=== PATIENT | female | born 1980 | race Caucasian/White ===

== ENCOUNTER 2017-06-11 12:14 | Emergency (ER) | payer MEDICAID, OTHER ==
[~2017-06-11] VITALS: Ht 165.1 cm; Wt 61.4 kg
[~2017-06-11 12:14] MED LIST: [UNRECOGNIZED DRUG - CODE]
[2017-06-11] MEDS ORDERED: CARB200T6 PO (12:17)
[2017-06-11] MEDS ORDERED: CarBAMazepine 200 MG ER TABLET PO ONE (12:45)
[2017-06-11 13:02] LABS: BASOPHILS % (AUTO) 0.5 % (0.0-2.0); EOSINOPHILS % (AUTO) 0.4 % (1.0-6.0); HEMATOCRIT 32.9 % (36-46); HEMOGLOBIN 10.6 g/dL (12.0-16.0); LYMPHOCYTES # (AUTO) 2.7 K/uL (1.0-4.8); LYMPHOCYTES % (AUTO) 27.9 % (22.0-44.0); MEAN CORPUSCULAR HEMOGLOBIN 24.9 pg (26.0-34.0); MEAN CORPUSCULAR HGB CONC 32.3 G/dL (31.0-37.0); MEAN CORPUSCULAR VOLUME 77 fL (80-100); MONOCYTES # (AUTO) 0.5 K/uL (0.1-1.0); MONOCYTES % (AUTO) 5.3 % (2.0-9.0); NEUTROPHILS # (AUTO) 6.4 K/uL (1.8-7.7); NEUTROPHILS % (AUTO) 65.9 % (40.0-70.0); PLATELET COUNT (AUTO) 286 K/uL (150-450); RED BLOOD CELL COUNT(AUTO) 4.26 MIL/uL (4.00-5.20); RED CELL DISTRIBUTION WIDTH 17.3 % (11.5-14.5); WHITE BLOOD COUNT (AUTO) 9.7 K/uL (4.5-11.0)
[2017-06-11 13:25] LABS: ANION GAP 7 mmol/L (8-16); CALCIUM, TOTAL 8.5 mg/dL (8.8-10.5); CARBON DIOXIDE 25 mmol/L (22-29); CHLORIDE 106 mmol/L (98-107); CREATININE 0.65 mg/dL (0.60-1.30); GLOMERULAR FILTR. RATE CALC > 60 mL/min (>60); POTASSIUM 3.7 mmol/L (3.5-5.1); SODIUM SERUM 138 mmol/L (136-145); UREA NITROGEN, BLOOD 12 mg/dL (7-18)
[2017-06-11 13:32] LABS: ALANINE AMINOTRANSFERASE 22 U/L (12-78); ALBUMIN 3.4 g/dL (3.4-5.0); ASPARTATE AMINOTRANSFERASE 14 U/L (15-37); BILIRUBIN,TOTAL 0.3 mg/dL (0.1-1.0); TOTAL PROTEIN, SERUM 6.5 g/dL (6.4-8.2)
[2017-06-11 14:40] VITALS: BP 113/83
== END 2017-06-11 14:41 | disposition home or self-care (01) ==
LOC: EMS 12:16
DX: G40.909 Epilepsy, unspecified, not intractable, without status epilepticus (principal); G83.84 Todd's paralysis (postepileptic); J45.909 Unspecified asthma, uncomplicated; R29.810 Facial weakness; Z91.19 Patient's noncompliance with other medical treatment and regimen
CPT/HCPCS: 70450; 81025; 99285

== ENCOUNTER 2018-07-15 14:37 | Emergency (ER) | payer MEDICAID ==
[~2018-07-15] VITALS: Ht 157.5 cm; Wt 61.4 kg
[~2018-07-15 14:37] MED LIST changes: +CARB200T6 PO; -[UNRECOGNIZED DRUG - CODE]
[2018-07-15 17:12] VITALS: BP 121/64
[2018-07-15] MEDS ORDERED: KETOROLAC TROMETHAMINE 60 MG/2 ML VIAL IM ONE (18:15)
== END 2018-07-15 18:26 | disposition home or self-care (01) ==
LOC: EMS 14:42
DX: G56.03 Carpal tunnel syndrome, bilateral upper limbs (principal); J45.909 Unspecified asthma, uncomplicated; Z88.8 Allergy status to other drugs, medicaments and biological substances
CPT/HCPCS: 29125; 96372; 99283; J1885

== ENCOUNTER 2018-09-09 10:10 | Emergency (ER) | payer MEDICAID ==
[~2018-09-09] VITALS: Ht 157.5 cm; Wt 59.5 kg
[2018-09-09] MEDS ORDERED: HYDROCODONE/ACETAMINOPHEN 5-325 MG TABLET PO ONE (12:15)
[2018-09-09 12:20] VITALS: BP 105/56
== END 2018-09-09 12:59 | disposition home or self-care (01) ==
LOC: EMS 10:10
DX: K02.9 Dental caries, unspecified (principal); K04.01 Reversible pulpitis; J45.909 Unspecified asthma, uncomplicated; Z88.8 Allergy status to other drugs, medicaments and biological substances

== ENCOUNTER → 2019-05-28 | Outpatient (CLI) | payer OTHER | END | disposition home or self-care (01) | LOC: MSR 09:45 | PROVIDERS: ATTEND Internal Medicine | DX: Z02.1 Encounter for pre-employment examination (principal); R76.11 Nonspecific reaction to tuberculin skin test without active tuberculosis | CPT/HCPCS: 86706; 86735; 86762; 86765; 86787 ==

== ENCOUNTER 2019-07-13 10:31 | Emergency (ER) | payer MEDICAID ==
[~2019-07-13] VITALS: Ht 157.5 cm; Wt 65.5 kg
[2019-07-13] MEDS ORDERED: ALBUTEROL SULFATE 2.5 MG/0.5 ML NEB SOLUTION NEB ONE (11:15)
[2019-07-13] MEDS ORDERED: IPRATROPIUM BROMIDE 0.5 MG/2.5 ML NEB SOLUTION NEB ONE (11:15)
[2019-07-13 11:24] LABS: GLUCOSE,POINT OF CARE 66 MG/DL (70-110)
[2019-07-13] MEDS ORDERED: 0.9% SODIUM CHLORIDE 5 ML NEB SOLUTION NEB ONE (11:26)
[2019-07-13 11:43] LABS: BASOPHILS % (AUTO) 0.7 % (0.0-2.0); EOSINOPHILS % (AUTO) 1.8 % (1.0-6.0); HEMATOCRIT 33.9 % (36-46); HEMOGLOBIN 10.8 g/dL (12.0-16.0); LYMPHOCYTES # (AUTO) 2.7 K/uL (1.0-4.8); LYMPHOCYTES % (AUTO) 29.4 % (22.0-44.0); MEAN CORPUSCULAR HEMOGLOBIN 23.2 pg (26.0-34.0); MEAN CORPUSCULAR HGB CONC 31.8 G/dL (31.0-37.0); MEAN CORPUSCULAR VOLUME 73 fL (80-100); MONOCYTES # (AUTO) 0.7 K/uL (0.1-1.0); MONOCYTES % (AUTO) 7.2 % (2.0-9.0); NEUTROPHILS # (AUTO) 5.7 K/uL (1.8-7.7); NEUTROPHILS % (AUTO) 60.9 % (40.0-70.0); PLATELET COUNT (AUTO) 287 K/uL (150-450); RED BLOOD CELL COUNT(AUTO) 4.65 MIL/uL (4.00-5.20); RED CELL DISTRIBUTION WIDTH 17.2 % (11.5-14.5)
[2019-07-13 11:54] LABS: ANION GAP 6 mmol/L (8-16); CALCIUM, TOTAL 8.5 mg/dL (8.8-10.5); CARBON DIOXIDE 26 mmol/L (22-29); CHLORIDE 105 mmol/L (98-107); CREATININE 0.58 mg/dL (0.60-1.30); GLOMERULAR FILTR. RATE CALC > 60 mL/min (>60); GLUCOSE,RANDOM 82 mg/dL (70-110); POTASSIUM 4.6 mmol/L (3.5-5.1); SODIUM SERUM 137 mmol/L (136-145); UREA NITROGEN, BLOOD 13 mg/dL (7-18)
[2019-07-13 11:58] LABS: B-TYPE NATRIURETIC PEPTIDE 6 pg/mL (0-100)
[2019-07-13 12:06] LABS: ALANINE AMINOTRANSFERASE 20 U/L (12-78); ALBUMIN 3.2 g/dL (3.4-5.0); ALKALINE PHOSPHATASE 81 U/L (46-116); ASPARTATE AMINOTRANSFERASE 13 U/L (15-37); BILIRUBIN,TOTAL 0.3 mg/dL (0.1-1.0); HCG,QUANTITATIVE < 1 mIU/mL (0-6); TOTAL PROTEIN, SERUM 6.6 g/dL (6.4-8.2)
[2019-07-13 12:25] VITALS: BP 110/68
== END 2019-07-13 12:35 | disposition home or self-care (01) ==
LOC: EMS 10:33
DX: J98.01 Acute bronchospasm (principal); Z88.8 Allergy status to other drugs, medicaments and biological substances
CPT/HCPCS: 84443; 93005; 94640

== ENCOUNTER 2019-09-11 08:18 | Emergency (ER) | payer MEDICAID ==
[~2019-09-11] VITALS: Ht 158.8 cm; Wt 64.5 kg
[2019-09-11] MEDS ORDERED: IBUPROFEN 600 MG TABLET PO ONE (09:00)
[2019-09-11 09:56] VITALS: BP 113/70
== END 2019-09-11 10:01 | disposition home or self-care (01) ==
LOC: EMS 08:20
DX: G56.03 Carpal tunnel syndrome, bilateral upper limbs (principal); J45.909 Unspecified asthma, uncomplicated; Z88.8 Allergy status to other drugs, medicaments and biological substances

== ENCOUNTER 2019-10-08 09:45 | Emergency (ER) | payer MEDICAID ==
[~2019-10-08] VITALS: Ht 165.1 cm; Wt 63.6 kg
[2019-10-08 14:39] VITALS: BP 106/69
== END 2019-10-08 14:41 | disposition home or self-care (01) ==
LOC: EMS 09:47
DX: J06.9 Acute upper respiratory infection, unspecified (principal); J45.909 Unspecified asthma, uncomplicated; Z88.8 Allergy status to other drugs, medicaments and biological substances

== ENCOUNTER 2019-10-18 11:21 | Emergency (ER) | payer MEDICAID ==
[~2019-10-18] VITALS: Ht 157.5 cm; Wt 65.0 kg
[2019-10-18] MEDS ORDERED: CARB100 PO (11:23)
[2019-10-18 12:44] LABS: EOSINOPHILS % (AUTO) 2.1 % (1.0-6.0); HEMATOCRIT 35.4 % (36-46); HEMOGLOBIN 10.9 g/dL (12.0-16.0); LYMPHOCYTES # (AUTO) 2.3 K/uL (1.0-4.8); LYMPHOCYTES % (AUTO) 30.2 % (22.0-44.0); MEAN CORPUSCULAR HEMOGLOBIN 21.9 pg (26.0-34.0); MEAN CORPUSCULAR HGB CONC 30.8 G/dL (31.0-37.0); MEAN CORPUSCULAR VOLUME 71 fL (80-100); MONOCYTES # (AUTO) 0.6 K/uL (0.1-1.0); MONOCYTES % (AUTO) 8.1 % (2.0-9.0); NEUTROPHILS # (AUTO) 4.5 K/uL (1.8-7.7); NEUTROPHILS % (AUTO) 58.6 % (40.0-70.0); PLATELET COUNT (AUTO) 338 K/uL (150-450); RED BLOOD CELL COUNT(AUTO) 4.95 MIL/uL (4.00-5.20); RED CELL DISTRIBUTION WIDTH 17.7 % (11.5-14.5)
[2019-10-18 13:03] LABS: ANION GAP 7 mmol/L (8-16); CALCIUM, TOTAL 8.8 mg/dL (8.8-10.5); CARBON DIOXIDE 28 mmol/L (22-29); CHLORIDE 105 mmol/L (98-107); CREATININE 0.77 mg/dL (0.60-1.30); GLOMERULAR FILTR. RATE CALC > 60 mL/min (>60); GLUCOSE,RANDOM 95 mg/dL (70-110); POTASSIUM 3.8 mmol/L (3.5-5.1); SODIUM SERUM 140 mmol/L (136-145); UREA NITROGEN, BLOOD 20 mg/dL (7-18)
[2019-10-18 13:10] LABS: ALANINE AMINOTRANSFERASE 39 U/L (12-78); ALBUMIN 3.7 g/dL (3.4-5.0); ALKALINE PHOSPHATASE 85 U/L (46-116); ASPARTATE AMINOTRANSFERASE 24 U/L (15-37); BILIRUBIN,TOTAL 0.6 mg/dL (0.1-1.0); TOTAL PROTEIN, SERUM 7.3 g/dL (6.4-8.2)
[2019-10-18] MEDS ORDERED: CarBAMazepine 200 MG TABLET PO ONE (13:30)
[2019-10-18 14:34] VITALS: BP 110/76
== END 2019-10-18 15:02 | disposition home or self-care (01) ==
LOC: EMS 11:22
DX: R56.9 Unspecified convulsions (principal); F41.9 Anxiety disorder, unspecified; J45.909 Unspecified asthma, uncomplicated; Z88.8 Allergy status to other drugs, medicaments and biological substances

== ENCOUNTER 2020-02-10 01:22 | Emergency (ER) | payer MEDICAID ==
[~2020-02-10] VITALS: Ht 157.5 cm; Wt 63.6 kg
[~2020-02-10 01:22] MED LIST changes: +CARB100 PO; -CARB200T6 PO
[2020-02-10] MEDS ORDERED: SODIUM CHLORIDE 0.9% 1,000 ML IV ONE (01:45)
[2020-02-10 02:13] LABS: BASOPHILS % (AUTO) 0.8 % (0.0-2.0); EOSINOPHILS % (AUTO) 0.9 % (1.0-6.0); HEMATOCRIT 28.4 % (36-46); LYMPHOCYTES # (AUTO) 2.4 K/uL (1.0-4.8); LYMPHOCYTES % (AUTO) 30.8 % (22.0-44.0); MEAN CORPUSCULAR HEMOGLOBIN 21.5 pg (26.0-34.0); MEAN CORPUSCULAR HGB CONC 31.8 G/dL (31.0-37.0); MEAN CORPUSCULAR VOLUME 68 fL (80-100); MONOCYTES # (AUTO) 0.4 K/uL (0.1-1.0); MONOCYTES % (AUTO) 5.3 % (2.0-9.0); NEUTROPHILS # (AUTO) 4.8 K/uL (1.8-7.7); NEUTROPHILS % (AUTO) 62.2 % (40.0-70.0); PLATELET COUNT (AUTO) 290 K/uL (150-450); RED BLOOD CELL COUNT(AUTO) 4.19 MIL/uL (4.00-5.20); RED CELL DISTRIBUTION WIDTH 17.3 % (11.5-14.5)
[2020-02-10 02:23] LABS: ANION GAP 13 mmol/L (8-16); CALCIUM, TOTAL 7.6 mg/dL (8.8-10.5); CARBON DIOXIDE 22 mmol/L (22-29); CHLORIDE 107 mmol/L (98-107); CREATININE 0.64 mg/dL (0.60-1.30); GLOMERULAR FILTR. RATE CALC > 60 mL/min (>60); GLUCOSE,RANDOM 86 mg/dL (70-110); POTASSIUM 3.1 mmol/L (3.5-5.1); SODIUM SERUM 142 mmol/L (136-145); UREA NITROGEN, BLOOD 11 mg/dL (7-18)
[2020-02-10 02:34] LABS: ALANINE AMINOTRANSFERASE 24 U/L (12-78); ALBUMIN 3.1 g/dL (3.4-5.0); ALKALINE PHOSPHATASE 68 U/L (46-116); ASPARTATE AMINOTRANSFERASE 19 U/L (15-37); BILIRUBIN,TOTAL 0.4 mg/dL (0.1-1.0); CREATINE KINASE, TOTAL ONLY 114 U/L (26-192); TOTAL PROTEIN, SERUM 6.6 g/dL (6.4-8.2)
[2020-02-10 04:49] LABS: HCG,QUANTITATIVE < 1 mIU/mL (0-6)
[2020-02-10] MEDS ORDERED: POTASSIUM CHLORIDE 20 MEQ ER TABLET PO PRN (05:15)
[2020-02-10] MEDS ORDERED: CALCIUM GLUCONATE 1,000 MG in DEXTROSE 5%-WATER 50 ML IV ONE (05:15)
[2020-02-10] MEDS ORDERED: POTASSIUM CHL 10 MEQ/WATER 50 ML IV PRN (05:15)
[2020-02-10] MEDS ORDERED: LevETIRAcetam 1,000 MG in DEXTROSE 5%-WATER 100 ML IV ONE (06:30)
[2020-02-10] MEDS ORDERED: POTASSIUM CHLORIDE 10% 40 MEQ/30 ML LIQUID UDCUP PO ONE (08:00)
[2020-02-10] MEDS ORDERED: CarBAMazepine 200 MG ER TABLET PO ONE (08:00)
[2020-02-10 10:00] VITALS: BP 97/69
== END 2020-02-10 11:01 | disposition home or self-care (01) ==
LOC: EMS 01:22
DX: G40.909 Epilepsy, unspecified, not intractable, without status epilepticus (principal); F10.129 Alcohol abuse with intoxication, unspecified; E87.6 Hypokalemia; E83.51 Hypocalcemia; J45.909 Unspecified asthma, uncomplicated; Z88.8 Allergy status to other drugs, medicaments and biological substances; Y90.6 Blood alcohol level of 120-199 mg/100 ml
CPT/HCPCS: 36415; 70450; 72125; 80053; 82550; 83605; 83735; 84702; 85025; 93005; 96365; 96367; 96375; 99291; G0480; J0610; J0712; J7030; J7060 ×2; J3480

== ENCOUNTER 2021-02-04 17:07 | Emergency (ER) | payer MEDICAID ==
[~2021-02-04] VITALS: Ht 157.5 cm; Wt 66.8 kg
[2021-02-04] MEDS ORDERED: CYCLOBENZAPRINE HCL 10 MG TABLET PO ONE (19:00)
[2021-02-04] MEDS ORDERED: KETOROLAC TROMETHAMINE 30 MG/ML VIAL IM ONE (19:00)
[2021-02-04] MEDS ORDERED: LIDOCAINE 5% TRANSDERMAL PATCH TD ONE (19:00)
[2021-02-04 20:30] VITALS: BP 105/61
== END 2021-02-04 20:30 | disposition home or self-care (01) ==
LOC: EMS 17:09
DX: M54.5 Low back pain (principal); J45.909 Unspecified asthma, uncomplicated; Z88.8 Allergy status to other drugs, medicaments and biological substances
CPT/HCPCS: 96372; 99283; J1885

== ENCOUNTER 2022-09-01 13:05 | Emergency (ER) | payer MEDICAID ==
[~2022-09-01] VITALS: Ht 157.5 cm; Wt 65.9 kg
[2022-09-01] MEDS ORDERED: LevETIRAcetam 1,000 MG in DEXTROSE 5%-WATER 100 ML IV ONE (13:15)
[2022-09-01 13:42] LABS: EOSINOPHILS % (AUTO) 1.8 % (1.0-6.0); HEMATOCRIT 29.1 % (36-46); HEMOGLOBIN 8.3 g/dL (12.0-16.0); LYMPHOCYTES # (AUTO) 2.1 K/uL (1.0-4.8); LYMPHOCYTES % (AUTO) 19.7 % (22.0-44.0); MEAN CORPUSCULAR HEMOGLOBIN 16.8 pg (26.0-34.0); MEAN CORPUSCULAR HGB CONC 28.4 G/dL (31.0-37.0); MEAN CORPUSCULAR VOLUME 59 fL (80-100); MONOCYTES # (AUTO) 0.6 K/uL (0.1-1.0); MONOCYTES % (AUTO) 5.6 % (2.0-9.0); NEUTROPHILS # (AUTO) 7.5 K/uL (1.8-7.7); NEUTROPHILS % (AUTO) 71.9 % (40.0-70.0); PLATELET COUNT (AUTO) 425 K/uL (150-450); RED BLOOD CELL COUNT(AUTO) 4.93 MIL/uL (4.00-5.20); RED CELL DISTRIBUTION WIDTH 19.3 % (11.5-14.5)
[2022-09-01 13:45] LABS: ANION GAP 8 mmol/L (8-16); CALCIUM, TOTAL 8.7 mg/dL (8.8-10.5); CARBON DIOXIDE 24 mmol/L (22-29); CHLORIDE 105 mmol/L (98-107); CREATININE 0.72 mg/dL (0.60-1.30); GLOMERULAR FILTR. RATE CALC > 60 mL/min (>60); GLUCOSE,RANDOM 79 mg/dL (70-110); POTASSIUM 4.2 mmol/L (3.5-5.1); SODIUM SERUM 137 mmol/L (136-145); UREA NITROGEN, BLOOD 17 mg/dL (7-18)
[2022-09-01 13:53] LABS: ALANINE AMINOTRANSFERASE 20 U/L (12-78); ALBUMIN 3.5 g/dL (3.4-5.0); ALKALINE PHOSPHATASE 91 U/L (46-116); ASPARTATE AMINOTRANSFERASE 20 U/L (15-37); BILIRUBIN,TOTAL 0.5 mg/dL (0.1-1.0); TOTAL PROTEIN, SERUM 7.4 g/dL (6.4-8.2)
[2022-09-01] MEDS ORDERED: CARB100 PO (15:08)
[2022-09-01 15:49] VITALS: BP 112/72
== END 2022-09-01 15:51 | disposition home or self-care (01) ==
LOC: EMS 13:05
DX: R56.9 Unspecified convulsions (principal); J45.909 Unspecified asthma, uncomplicated
CPT/HCPCS: 99284; 96365; 80053; 85025; J0712; J7060

== ENCOUNTER 2023-06-25 11:12 | Emergency (ER) | payer MEDICAID ==
[~2023-06-25] VITALS: Ht 157.5 cm; Wt 66.8 kg
[~2023-06-25 11:12] MED LIST changes: -CARB100 PO; +CARB100T12 PO
[2023-06-25 11:28] VITALS: BP 152/58; PULSE 84; RESP 18; TEMP 98.2
[2023-06-25] MEDS ORDERED: IBUPROFEN 600 MG TABLET PO ONE (13:30)
[2023-06-25] MEDS ORDERED: METHOCARBAMOL 500 MG TABLET PO ONE (13:30)
[2023-06-25] MEDS ORDERED: HYDROCODONE/ACETAMINOPHEN 5-325 MG TABLET PO ONE (13:30)
[2023-06-25] MEDS ORDERED: IBUP-1554 PO (15:49)
[2023-06-25] MEDS ORDERED: METH-659 PO (15:49)
[2023-06-25] MEDS ORDERED: HYDR-4723 PO (15:49)
== END 2023-06-25 16:05 | disposition home or self-care (01) ==
LOC: EMS 11:12
DX: S13.4XXA Sprain of ligaments of cervical spine, initial encounter (principal); J45.909 Unspecified asthma, uncomplicated; V89.2XXA Person injured in unspecified motor-vehicle accident, traffic, initial encounter; Y93.89 Activity, other specified; Y92.89 Other specified places as the place of occurrence of the external cause; Y99.8 Other external cause status
CPT/HCPCS: 72040; 72070; 72100; 99284; Z7502; Z7610

== ENCOUNTER 2023-09-08 17:56 | Emergency (ER) | payer MEDICAID, OTHER ==
[~2023-09-08] VITALS: Ht 162.6 cm; Wt 70.9 kg
[~2023-09-08 17:56] MED LIST changes: +HYDR-4723 PO; +IBUP-1554 PO; +METH-659 PO
[2023-09-08 18:03] VITALS: TEMP 98.3
[2023-09-08 18:35] VITALS: BP 120/85; PULSE 111; RESP 18
[2023-09-08 18:52] LABS: COVID AG,FIA SOURCE NASAL SWAB
[2023-09-08 19:25] LABS: SARS-COV2 (COVID) ANTIGEN,FIA Negative (Negative)
[2023-09-08 19:48] LABS: BASOPHILS % (AUTO) 0.9 % (0.0-2.0); EOSINOPHILS % (AUTO) 2.4 % (1.0-6.0); HEMATOCRIT 29.8 % (36-46); HEMOGLOBIN 8.8 g/dL (12.0-16.0); LYMPHOCYTES # (AUTO) 1.5 K/uL (1.0-4.8); LYMPHOCYTES % (AUTO) 14.2 % (22.0-44.0); MEAN CORPUSCULAR HEMOGLOBIN 18.1 pg (26.0-34.0); MEAN CORPUSCULAR HGB CONC 29.6 G/dL (31.0-37.0); MEAN CORPUSCULAR VOLUME 61 fL (80-100); MONOCYTES # (AUTO) 0.8 K/uL (0.1-1.0); MONOCYTES % (AUTO) 7.5 % (2.0-9.0); NEUTROPHILS # (AUTO) 7.9 K/uL (1.8-7.7); PLATELET COUNT (AUTO) 471 K/uL (150-450); RED BLOOD CELL COUNT(AUTO) 4.87 MIL/uL (4.00-5.20); RED CELL DISTRIBUTION WIDTH 19.9 % (11.5-14.5); WHITE BLOOD COUNT (AUTO) 10.6 K/uL (4.5-11.0)
[2023-09-08 19:59] LABS: ANION GAP 14 mmol/L (8-16); CALCIUM, TOTAL 8.9 mg/dL (8.8-10.5); CARBON DIOXIDE 24 mmol/L (22-29); CHLORIDE 103 mmol/L (98-107); CREATININE 0.63 mg/dL (0.60-1.30); GLOMERULAR FILTR. RATE CALC > 60 mL/min (>60); GLUCOSE,RANDOM 82 mg/dL (70-110); POTASSIUM 3.4 mmol/L (3.5-5.1); SODIUM SERUM 141 mmol/L (136-145); UREA NITROGEN, BLOOD 15 mg/dL (7-18)
[2023-09-08 20:05] LABS: ALANINE AMINOTRANSFERASE 27 U/L (12-78); ALBUMIN 3.8 g/dL (3.4-5.0); ALKALINE PHOSPHATASE 95 U/L (46-116); ASPARTATE AMINOTRANSFERASE 22 U/L (15-37); BILIRUBIN,TOTAL 0.6 mg/dL (0.1-1.0); TOTAL PROTEIN, SERUM 7.6 g/dL (6.4-8.2)
[2023-09-08 20:14] LABS: ALCOHOL, BLOOD (SERUM) < 3 mg/dL (0-10)
[2023-09-08 20:51] LABS: RBC MORPHOLOGY COMMENT ABNORMAL RBC MORPH
[2023-09-08] MEDS: LORazepam 2 MG TABLET PO ONE (21:31)
== END 2023-09-08 21:45 | disposition home or self-care (01) ==
LOC: EMS 18:04
DX: F41.9 Anxiety disorder, unspecified (principal); J45.909 Unspecified asthma, uncomplicated; F32.A Depression, unspecified; Z88.8 Allergy status to other drugs, medicaments and biological substances; Z20.822 Contact with and (suspected) exposure to COVID-19
CPT/HCPCS: 99283; 87426; 80053; 85025; 36415; G0480; 80307; 84703